=== PATIENT | female | born 1935 ===

== ENCOUNTER 2022-08-17 09:15 | Inpatient (IN) | payer OTHER ==
[2022-08-17] MEDS ORDERED: PLAVIX75 MG PO (09:46)
[2022-08-17] MEDS ORDERED: IRBESARTAN-HCT1 EAC1 PO (09:46)
[2022-08-17] MEDS ORDERED: ISOSORBIDE DINI30 MG PO (09:46)
[2022-08-17] MEDS ORDERED: SYNTHROID50 MCG PO (09:47)
[2022-08-17] MEDS ORDERED: ARICEPT5 MG PO (09:47)
[2022-08-17] MEDS ORDERED: CRESTOR40 MG PO (09:47)
[2022-08-17] MEDS ORDERED: FOLIC ACID0.8 M1 PO (09:48)
[2022-08-17] MEDS ORDERED: PREVACID30 MG PO (09:48)
[2022-08-17] MEDS ORDERED: ZOLOFT25 MG PO (09:48)
[2022-08-19] MEDS ORDERED: ATENOLOL25 MG (13:17)
[2022-08-19] MEDS ORDERED: VITAMIN D3250 MCG (13:17)
[2022-08-19] MEDS ORDERED: BENZONATATE100 MG (13:17)
[2022-08-19] MEDS ORDERED: FOLIC ACID1 MG (13:17)
[2022-08-19] MEDS ORDERED: ISOSORBIDE MONO30 M2 (13:17)
== END 2022-08-28 23:09 | disposition home or self-care (01) | DRG 329 ==
LOC: O/R 08-19 05:31 → SURH 08-19 09:15
PROVIDERS: Surgery; ADMIT Surgery; ATTEND Surgery
PROC: 0DTN0ZZ Resection of Sigmoid Colon, Open Approach (ICD-10-PCS; 2022-08-19)
PROC: 0DN80ZZ Release Small Intestine, Open Approach (ICD-10-PCS; 2022-08-19)
PROC: 0WUF0JZ Supplement Abdominal Wall with Synthetic Substitute, Open Approach (ICD-10-PCS; 2022-08-19)
PROC: 0DNW0ZZ Release Peritoneum, Open Approach (ICD-10-PCS; 2022-08-19)
PROC: 0DJD8ZZ Inspection of Lower Intestinal Tract, Via Natural or Artificial Opening Endoscopic (ICD-10-PCS; 2022-08-19)
PROC: 0DBM0ZZ Excision of Descending Colon, Open Approach (ICD-10-PCS; principal; 2022-08-19 09:15)
PROC: 0DBP0ZZ Excision of Rectum, Open Approach (ICD-10-PCS; 2022-08-19 09:15)
PROC: 4A12X4Z Monitoring of Cardiac Electrical Activity, External Approach (ICD-10-PCS; 2022-08-20)
PROC: B24BZZZ Ultrasonography of Heart with Aorta (ICD-10-PCS; 2022-08-21)
PROC: B54DZZZ Ultrasonography of Bilateral Lower Extremity Veins (ICD-10-PCS; 2022-08-21)
PROC: BW24ZZZ Computerized Tomography (CT Scan) of Chest and Abdomen (ICD-10-PCS; 2022-08-21)
PROC: 02HV33Z Insertion of Infusion Device into Superior Vena Cava, Percutaneous Approach (ICD-10-PCS; 2022-08-21)
DX: K57.20 Diverticulitis of large intestine with perforation and abscess without bleeding (principal); I21.4 Non-ST elevation (NSTEMI) myocardial infarction; T81.19XA Other postprocedural shock, initial encounter; I50.23 Acute on chronic systolic (congestive) heart failure; I47.1 Supraventricular tachycardia; K91.89 Other postprocedural complications and disorders of digestive system; K56.7 Ileus, unspecified; E87.0 Hyperosmolality and hypernatremia; E87.29 Other acidosis; I13.0 Hypertensive heart and chronic kidney disease with heart failure and stage 1 through stage 4 chronic kidney disease, or unspecified chronic kidney disease; K43.2 Incisional hernia without obstruction or gangrene; R09.02 Hypoxemia; K42.9 Umbilical hernia without obstruction or gangrene; K43.5 Parastomal hernia without obstruction or gangrene; R19.4 Change in bowel habit; K30 Functional dyspepsia; R59.0 Localized enlarged lymph nodes; I48.91 Unspecified atrial fibrillation; I25.10 Atherosclerotic heart disease of native coronary artery without angina pectoris; I11.9 Hypertensive heart disease without heart failure; Z95.1 Presence of aortocoronary bypass graft; E11.22 Type 2 diabetes mellitus with diabetic chronic kidney disease; N18.30 Chronic kidney disease, stage 3 unspecified; Z79.4 Long term (current) use of insulin; Z20.822 Contact with and (suspected) exposure to COVID-19